=== PATIENT | male | born 1955 | race American Indian/Alaskan Native ===

== ENCOUNTER 2020-01-10 22:02 | Emergency (ER) | payer MEDICARE ==
--- NOTE | 2020-01-11 02:32 | Emergency Department Report ---
HPI - General Chief Complaint: Abdominal Pain Time Seen by Provider: 01/11/20 02:22 - [facility] HPI: Room 24 The patient is a 64-year-old male presenting with a chief complaint of urinary retention. The patient states while in [place] he had urinary retention went to the emergency department had a [place] catheter placed. The patient states this evening at approximate 17: 00 he had noticed some blood in the [place] bag and then the [place] stopped draining. Patient states he has the urge to urinate but no urine is draining from his catheter. ED Past Medical Hx - Past Medical History Previous Medical History?: Yes Hx Hypertension: Yes Additional medical history: BPH - Surgical History Past Surgical History?: No - Family History Family history: no significant - Social History Smoking Status: Never Smoker Substance Use Type: None (Denies illicit drug use) - Medications Home Medications: Home Medications Medication Instructions Recorded Confirmed Last Taken Type Ciprofloxacin HCl [Ciprofloxacin 500 mg PO Q12HR #20 tab 01/11/20 Unknown Rx TAB] ED Review of Systems ROS: Stated complaint: CAN'T PEE Other details as noted in HPI Constitutional: no symptoms reported Respiratory: no symptoms reported Endocrine: no symptoms reported Gastrointestinal: abdominal pain Genitourinary: hematuria, other ([place] catheter not draining) Physical Exam - Physical Exam Vital Signs: Vital Signs 01/10/20 22:51 Temperature 97.8 F Pulse Rate 70 Respiratory 18 Rate Blood Pressure 185/96 O2 Sat by Pulse 99 Oximetry Physical Exam: GENERAL: The patient is well-developed well-nourished male standing in room appearing to be uncomfortable. [] HEENT: Normocephalic. Atraumatic. Extraocular motions are intact. Patient has moist mucous membranes. NECK: Supple. Trachea midline CHEST/LUNGS: Clear to auscultation. There is no respiratory distress noted. HEART/CARDIOVASCULAR: Regular. There is no tachycardia. There is no gallop rub or murmur. ABDOMEN: Abdomen is soft, with suprapubic discomfort. Patient has normal bowel sounds. There is no abdominal distention. SKIN: There is no rash. There is no edema. There is no diaphoresis. NEURO: The patient is awake, alert, and oriented. The patient is cooperative. The patient has no focal neurologic deficits. The patient has normal speech MUSCULOSKELETAL: There is no evidence of acute injury. ED Course Vital Signs 01/10/20 22:51 Temperature 97.8 F Pulse Rate 70 Respiratory 18 Rate Blood Pressure 185/96 O2 Sat by Pulse 99 Oximetry ED Medical Decision Making - Lab Data Laboratory Tests 01/11/20 02:46 Urine Color Red Urine Turbidity Slightly-cloudy Urine pH 6.0 Ur Specific Kennedy 1.008 Urine Protein 300 mg/dl Urine Glucose (UA) Neg Urine Ketones Neg Urine Blood Lg Urine Nitrite Neg Urine Bilirubin Neg Urine Urobilinogen < 2.0 Ur Leukocyte Esterase Sm Urine WBC (Auto) 49.0 H Urine RBC (Auto) > 182.0 Urine Bacteria (Auto) 2+ - Differential Diagnosis Urinary retention, UTI, hematuria Critical care attestation.: If time is entered above; I have spent that time in minutes in the direct care of this critically ill patient, excluding procedure time. ED Disposition Clinical Impression: Urinary retention, UTI (urinary tract infection) Disposition: TO HOME OR SELFCARE Is pt being admited?: No Does the pt Need Aspirin: No Condition: Stable Instructions: Urinary Tract Infection in Men (ED), [place] Catheter Placement and Care (ED) Additional Instructions: Return to the emergency department should you develop worsening symptoms, inability to tolerate food or liquids, high fever or any other concerns Prescriptions: Ciprofloxacin HCl [Ciprofloxacin TAB] 500 mg PO Q12HR #20 tab Referrals: PRIMARY CAREMD [Primary Care Provider] - 3-5 Days Time of Disposition: 04:40
[2020-01-11 03:05] LABS: Bacteria,Urine 2+ /HPF (Negative); Bilirubin,Urine NEG (Negative); Blood,Urine LG (Negative); Color,Urine Red (Yellow); Urobilinogen,Urine < 2.0 mg/dL (<2.0)
[2020-01-11 03:07] LABS: Protein,Urine 300 mg/dL mg/dL (Negative); RBC,Urine > 182.0 /HPF (0.0-6.0)
[2020-01-11] MEDS ORDERED: SODIUM CHLORIDE IRRI 500 ML 1,000 ML IR ONE (04:05)
[2020-01-11] MEDS ORDERED: SODIUM CHLORIDE 0.9% IRR 500 ML BOTTLE IR ONE (04:23)
[2020-01-11 04:54] VITALS: BP 158/93
== END 2020-01-11 04:54 | disposition home or self-care (01) ==
LOC: ED 22:02
DX: R33.9 Retention of urine, unspecified (principal); N39.0 Urinary tract infection, site not specified; I10 Essential (primary) hypertension; Z79.2 Long term (current) use of antibiotics
CPT/HCPCS: 81001; 87086

== ENCOUNTER 2020-01-13 10:09 | Emergency (ER) | payer MEDICARE ==
[2020-01-13 10:24] VITALS: BP 151/92
--- NOTE | 2020-01-13 10:27 | Emergency Department Report ---
Blank Doc - Documentation Documentation: 64-year-old male that presents with urinary leakage from [place]. This initial assessment/diagnostic orders/clinical plan/treatment(s) is/are subject to change based on patient's health status, clinical progression and re- assessment by fellow clinical providers in the ED. Further treatment and workup at subsequent clinical providers discretion. Patient/guardians urged not to elope from the ED as their condition may be serious if not clinically assessed and managed. Initial orders include: 1- Patient sent to [facility] for further evaluation and treatment
--- NOTE | 2020-01-13 12:03 | Emergency Department Report ---
Chief Complaint: Urogenital-Male Stated Complaint: CATH LEAKAGE/W/BLOOD Time Seen by Provider: 01/13/20 10:25 - HPI History of Present Illness: 64-year-old -Citizen Of [place] male patient presents with complaints of leakage to his [place] catheter and blood in his urine x today. Patient states he had the [place] catheter placed about 8 days ago due to urinary obstruction. He states he is currently on antibiotics for a UTI. He denies any pain, fever/chills/sweats, or other past medical history. Patient states since he took his antibiotic prior to coming into the ED, the leakage and blood in his urine has stopped. - Exam Vital Signs: Vital Signs 01/13/20 01/13/20 10:21 11:43 Temperature 97.9 F Pulse Rate 62 Respiratory 18 18 Rate Blood Pressure 151/92 O2 Sat by Pulse 98 99 Oximetry MSE screening note: Focused history and physical exam performed. Due to findings the following was ordered: ED Medical Decision Making - Medical Decision Making 64-year-old -Citizen Of [place] male patient presents with complaints of leakage to his [place] catheter and blood in his urine x today. Patient states he had the [place] catheter placed about 8 days ago due to urinary obstruction. He states he is currently on antibiotics for a UTI. He denies any pain, fever/chills/sweats, or other past medical history. Patient states since he took his antibiotic prior to coming into the ED, the leakage and blood in his urine has stopped. On exam, there is minimal blood noted in the urine bag with about with about 200 cc of urine noted. No active leakage is noted from the [place] and there is no tenderness to palpation of the penis or blood noted at the urethra. He denies any decreased urine in his bag. Patient was seen here 01/10/2024 hematuria and urinary obstruction and had his [place] catheter replaced at that time. Urine culture is negative for bacterial growth. His vitals are normal, he is well- appearing, he is stable for discharge home. Patient to follow-up with his urologist as scheduled tomorrow. Discussed signs and symptoms that should prompt immediate return to the emergency department in detail with patient who verbalizes understanding. ED Disposition for MSE Clinical Impression: Hematuria Qualifiers: Hematuria type: gross Qualified Code(s): R31.0 - Gross hematuria Leakage from urinary catheter Qualifiers: Encounter type: initial encounter Qualified Code(s): T83.038A - Leakage of other urinary catheter, initial encounter Disposition: Z-07 MED SCREENING EXAM-LEFT Is pt being admited?: No Condition: Stable Instructions: [place] Catheter Placement and Care (ED), Urinary Leg Bag (GEN) Additional Instructions: Please follow-up with your urologist as scheduled tomorrow 01/14/2020 Referrals: JONAH JIANG [Other] - 3-5 Days ED Review of Systems ROS: Stated complaint: CATH LEAKAGE/W/BLOOD Other details as noted in HPI Constitutional: denies: chills, diaphoresis, fever, malaise, weakness Endocrine: denies: excessive sweating Gastrointestinal: denies: abdominal pain Genitourinary: hematuria. denies: dysuria, testicular pain Musculoskeletal: denies: back pain Skin: denies: rash, lesions, change in color Hematological/Lymphatic: denies: easy bleeding ED Physical Exam - General Limitations: No Limitations General appearance: alert, in no apparent distress - Head Head exam: Present: atraumatic, normocephalic - Eye Eye exam: Present: normal appearance. Absent: scleral icterus - Respiratory Respiratory exam: Absent: respiratory distress - Cardiovascular Cardiovascular Exam: Present: regular rate - GI/Abdominal GI/Abdominal exam: Present: soft - exam: Present: normal inspection. Absent: scrotal swelling External exam: Absent: erythema, bleeding ([place] catheter noted in place without tenderness to palpation of the penile head or blood noted to the urethra. Approximately 200 cc of urine with mild hematuria noted to [place] bag.) - Extremities Exam Extremities exam: Present: full ROM - Neurological Exam Neurological exam: Present: alert, oriented X3, normal gait - Psychiatric Psychiatric exam: Present: normal affect, normal mood - Skin Skin exam: Present: warm, dry, intact, normal color. Absent: rash
== END 2020-01-13 12:27 | disposition left against medical advice (07) ==
LOC: ED 10:09
DX: R31.0 Gross hematuria (principal); T83.038A Leakage of other urinary catheter, initial encounter; Z53.21 Procedure and treatment not carried out due to patient leaving prior to being seen by health care provider